=== PATIENT | female | born 1955 | race Caucasian/White ===

== ENCOUNTER → 2017-01-02 | Emergency (ER) | payer SELFPAY ==
[~2017-01-02] VITALS: Wt 68.0 kg
[~2017-01-02] MED LIST: ASPI-664 PO; ATOR20TA38 PO; CLOP75TA27 PO; METO-448 PO; NIT4 SL
[2017-01-02 15:21] VITALS: BP 135/61; PULSE 72; RESP 20; TEMP 98.7
== END | disposition left against medical advice (07) ==
LOC: FTE 13:51
DX: Z53.21 Procedure and treatment not carried out due to patient leaving prior to being seen by health care provider (principal)

== ENCOUNTER 2019-03-24 09:35 | Emergency (ER) | payer OTHER ==
[~2019-03-24] VITALS: Wt 80.0 kg
[~2019-03-24 09:35] MED LIST changes: -ASPI-664 PO; +ASPI-817 PO; -NIT4 SL; +NITR0.4T39 SL
[2019-03-24] MEDS ORDERED: ALBUTEROL 0.083% (NEB) 2.5 MG/3 ML AMP NEB STA (11:28)
[2019-03-24] MEDS ORDERED: IPRATROPIUM (NEB) 0.5 MG/2.5 ML AMP NEB STA (11:28)
--- NOTE | 2019-03-24 11:38 | ERD ---
ER Documentation Chief Complaint Chief Complaint FLU X 4 DAYS, NASAL CONGESTION, COUGH HPI Patient is a 63 years old female with past medical history of deviated septum and myocardial infarction status post stent placement 3 years ago presenting to the clinic for cold-like symptoms since Saturday. Patient reports of general body aches, cough, shortness of breath, chest pain with cough, throat pain, nasal congestion, headaches, bilateral ear pain. Patient reports she has difficult time breathing due to the severe congestion of her nose and admits to having 5 hours sleep. Patient was seen and evaluated by her primary care provider and was given Z-Glynn without resolution followed by amoxicillin without resolution. Patient is requesting strep testing. ROS All systems reviewed and are negative except as per history of present illness. Medications Home Meds Active Scripts Phenylephrine/Diphenhydramine (DIMETAPP COLD & CONGEST LIQUID) 118 Ml Liquid, 10 ML PO Q4H PRN for COUGH, #4 OZ Prov:MARI REZA PA-C 03/24/19 Mometasone Furoate* (Nasonex*) 50 Mcg/Mcewen - 17 Gm Mcewen.pump, 2 SPRAY NASAL BID, #1 BOTTLE TO EACH NOSTRIL Prov:MARI REZA PA-C 03/24/19 Loratadine* (Claritin*) 5 Mg Tab.rapdis, 5 MG PO DAILY, #30 TAB Prov:MARI REZA PA-C 03/24/19 Metoprolol Tartrate* (Lopressor*) 25 Mg Tab, 25 MG PO BID, #60 TAB Prov:CAMERON HENDRICKSON 07/28/15 Atorvastatin Calcium* (Atorvastatin Calcium*) 20 Mg Tab, 40 MG PO DAILY@21, #30 Prov:CAMERON HENDRICKSON 07/28/15 Aspirin* (Aspirin* EC) 81 Mg Tabec, 81 MG PO DAILY, #30 Prov:CAMERON HENDRICKSON 07/28/15 Reported Medications Nitroglycerin* (Nitrostat*) 0.4 Mg Tab.subl, 0.4 MG SL Q5MIN PRN for CHEST PAIN, BOTTLE 08/17/15 Clopidogrel Bisulfate (Clopidogrel) 75 Mg Tablet, 75 MG PO DAILY, TAB 08/17/15 Allergies Allergies: Coded Allergies: No Known Allergy (Unverified , 08/17/15) PMhx/Soc Deviated septum. Myocardial infarction status post stent placement in 2016. History of Surgery: Yes (CABG) Anesthesia Reaction: No Hx Neurological Disorder: Yes Hx Respiratory Disorders: Yes Hx Cardiac Disorders: No (STENT PLACEMENT) Hx Psychiatric Problems: Yes (DEPRESSION) Hx Miscellaneous Medical Probl: No Hx Alcohol Use: No Hx Substance Use: No Hx Tobacco Use: No Smoking Status: Never smoker FmHx Family History: No diabetes, No coronary disease, No other Physical Exam Vitals Vital Signs Date Temp Pulse Resp B/P (MAP) Pulse Ox O2 O2 Flow FiO2 Time Delivery Rate 03/24/19 99 18 99 21 11:49 03/24/19 99.2 99 18 164/94 99 09:40 (117) Physical Exam Const: No acute distress Head: Atraumatic. No sinus tenderness. Eyes: Normal Conjunctiva ENT: Cerumen impaction in right ear canal; Tympanic membrane could not be evaluated. Normal left ear exam. He is to mucosa edematous. Mild oropharyngeal erythema. Neck: Full range of motion. No meningismus. Resp: Diminished breath sounds bilaterally. No rales, no rhonchi, no whe ezing. Cardio: Regular rate and rhythm, no murmurs Ext: No cyanosis, or edema Neur: Awake and alert Psych: Normal Mood and Affect Results 24 hrs Laboratory Tests Test 03/24/19 12:52 Monoscreen Negative Current Medications Medications Dose Sig/Conchita Start Time Status Last (Trade) Ordered Route PRN Stop Time Admin Dose Reason Admin Albuterol 5 mg ONCE STAT 03/24/19 DC 03/24/19 (Proventil NEB 11: 11:44 0.083% (Neb)) 03/24/19 11:31 Ipratropium 1 mg ONCE STAT 03/24/19 DC 03/24/19 [place] NEB 11: 11:45 (Atrovent 03/24/19 11:31 0.02% (Neb)) 125 mg ONCE STAT 03/24/19 DC 03/24/19 Methylprednis IM 11: 11:59 olone Sodium 03/24/19 11:31 Succinate (Solu-Medrol) Procedures/MDM Patient was seen and evaluated for cold. Patient's chest x-ray is unremarkable while symptoms most resemble bronchitis. Patient has a negative strep and mono test. Right ear exam status post ear lavage shows normal signs of infection. No erythema, discharge, perforation noted on exam. Patient is stable and ready for discharge. Patient was informed that she is most likely having an allergy exacerbation which is worsened by her deviated septum. Patient will be discharged with Claritin, Nasonex, and Dimetapp. Departure Diagnosis: Primary Impression: Bronchitis Additional Impressions: Right ear impacted cerumen Allergy Encounter type: initial encounter Qualified Codes: T78.40XA - Allergy, unspecified, initial encounter Condition: Stable Patient Instructions: Preventing Latex Allergy Referrals: [facility] Additional Instructions: Patient advised to return to the ED immediately for new or worsening symptoms. Patient advised to follow up with primary care provider in the next 24-48 hours. Patient verbalized understanding and agrees with treatment plan and course of action. If patient has no primary care they may follow up with [facility] [address] [place] [id number] or [facility] [address] [place] [address] or [facility] [address] [place] [address] MARI REZA PA-C March 24, 2019 11:38
[2019-03-24] MEDS: METHYLPREDNISOLONE 125 MG INJ IM STA ×2 (11:39→11:59)
[2019-03-24] MEDS ORDERED: PHEN118L PO (13:43)
[2019-03-24] MEDS ORDERED: LORA5TAB4 PO (13:43)
[2019-03-24] MEDS ORDERED: NASO17 NASAL (13:43)
[2019-03-24 13:59] VITALS: BP 126/81; PULSE 85; RESP 19
== END 2019-03-24 14:00 | disposition home or self-care (01) ==
LOC: FTE 09:35
DX: J40 Bronchitis, not specified as acute or chronic (principal); I25.2 Old myocardial infarction; H61.21 Impacted cerumen, right ear; Z79.01 Long term (current) use of anticoagulants; Z79.82 Long term (current) use of aspirin; Z95.1 Presence of aortocoronary bypass graft
CPT/HCPCS: 71045; 86308; 87880; 94664; 96372; J2930; Z7502; Z7610

== ENCOUNTER 2019-04-02 21:05 | Emergency (ER) | payer OTHER ==
[~2019-04-02] VITALS: Ht 160 cm; Wt 67.4 kg
[~2019-04-02 21:05] MED LIST changes: +LORA5TAB4 PO; +NASO17 NASAL; +PHEN118L PO
[2019-04-02 21:33] VITALS: Ht 160 cm; Wt 67.4 kg
[2019-04-02] MEDS ORDERED: KETOROLAC 30 MG INJ IV STA (23:29)
[2019-04-02] MEDS ORDERED: SOD CHLORIDE 0.9% 1,000 ML IV STA (23:29)
[2019-04-03] MEDS ORDERED: IBUPROFEN 800 MG TAB PO ONE
--- NOTE | 2019-04-03 00:46 | ERD ---
ER Documentation Chief Complaint Chief Complaint Sinus pain HPI 63-year-old female who has had at least 3 weeks of sinus headache. She describes bilateral frontal and maxillary sinus pain and fullness with drainage of greenish discharge. No fevers or chills. The patient has had 2 visits to the emergency room for similar symptoms. She has tried oral antibiotics possibly amoxicillin or Augmentin. Patient is describing persistent pain that is 6-7 out of 10. No fevers or chills. The family was to follow-up with an ear nose and throat doctor tomorrow but there appointment was canceled and they do not have follow-up for several weeks. This prompted the visit to the emergency room. Of note is unclear why at triage it was noted to the patient is a fall. She denies falling or having head injury. This is not accurate information. ROS All systems reviewed and are negative except as per history of present illness. Medications Home Meds Active Scripts Ibuprofen* (Motrin*) 800 Mg Tab, 800 MG PO Q6H PRN for PAIN AND OR ELEVATED TEMP, #30 TAB Prov:ISIS DERAS MD 04/03/19 Fluticasone Propionate (Flonase Allergy Relief) 9.9 Ml [place].susp, 1 SPRAY NASAL BID for 10 Days, #1 BOTTLE TO EACH NOSTRIL Prov:ISIS DERAS MD 04/03/19 Clindamycin Hcl* (Clindamycin Hcl*) 300 Mg Capsule, 300 MG PO TID for 14 Days, CAP Prov:ISIS DERAS MD 04/03/19 Phenylephrine/Diphenhydramine (DIMETAPP COLD & CONGEST LIQUID) 118 Ml Liquid, 10 ML PO Q4H PRN for COUGH, #4 OZ Prov:MARI REZA PA-C 03/24/19 Mometasone Furoate* (Nasonex*) 50 Mcg/[place] - 17 Gm [place].pump, 2 SPRAY NASAL BID, #1 BOTTLE TO EACH NOSTRIL Prov:MARI REZA PA-C 03/24/19 Loratadine* (Claritin*) 5 Mg Tab.rapdis, 5 MG PO DAILY, #30 TAB Prov:MARI REZA PA-C 03/24/19 Metoprolol Tartrate* (Lopressor*) 25 Mg Tab, 25 MG PO BID, #60 TAB Prov:CAMERON HENDRICKSON 07/28/15 Atorvastatin Calcium* (Atorvastatin Calcium*) 20 Mg Tab, 40 MG PO DAILY@21, #30 Prov:CAMERON HENDRICKSON 07/28/15 Aspirin* (Aspirin* EC) 81 Mg Tabec, 81 MG PO DAILY, #30 Prov:CAMERON HENDRICKSON 07/28/15 Reported Medications Nitroglycerin* (Nitrostat*) 0.4 Mg Tab.subl, 0.4 MG SL Q5MIN PRN for CHEST PAIN, BOTTLE 08/17/15 Clopidogrel Bisulfate (Clopidogrel) 75 Mg Tablet, 75 MG PO DAILY, TAB 08/17/15 Allergies Allergies: Coded Allergies: No Known Allergy (Unverified , 08/17/15) PMhx/Soc History of Surgery: Yes (CABG) Anesthesia Reaction: No Hx Neurological Disorder: Yes Hx Respiratory Disorders: Yes Hx Cardiac Disorders: No (STENT PLACEMENT) Hx Psychiatric Problems: Yes (DEPRESSION) Hx Miscellaneous Medical Probl: No Hx Alcohol Use: No Hx Substance Use: No Hx Tobacco Use: No FmHx Family History: No diabetes Physical Exam Vitals Vital Signs Date Temp Pulse Resp B/P (MAP) Pulse Ox O2 O2 Flow FiO2 Time Delivery Rate 04/03/19 90 18 148/69 98 Room Air 00:07 (95) 04/02/19 98.9 74 18 156/67 97 21:33 (96) Physical Exam General: Well developed, well nourished, no acute distress Head: Normocephalic, atraumatic. Eyes: EOM intact ENT: Moist mucous membranes Neck: Full ROM Respiratory: No respiratory distress Cardiovascular: Well perfused distally Abdominal: Nondistended : Deferred MSK: No edema, no unilateral swelling, 5/5 strength Neurologic: Alert and oriented, moving all extremities, normal speech, steady gait Skin: No rash Psych: Normal mood Results 24 hrs Current Medications Medications Dose Sig/Conchita Start Time Status Last (Trade) Ordered Route PRN Stop Time Admin Dose Reason Admin Sodium 1,000 ml @ Q1H STAT 04/02/19 DC 04/03/19 Chloride 1,000 mls/hr IV 23:29 04/03/19 00:01 00:28 Ketorolac 30 mg ONCE STAT 04/02/19 DC Tromethamine IV 23:29 04/02/19 (Toradol) 23:33 Ibuprofen 800 mg ONCE ONCE 04/03/19 DC 04/03/19 (Motrin) PO 00:00 04/03/19 00:01 00:01 Procedures/MDM EKG, MONITORS, & DIAGNOSTIC IMAGING: CT sinus IMPRESSION: Extensive left-sided sinus disease. The left maxillary sinus is completely opacified, with obscuration of the left ostiomeatal unit. There is also extensive opacification of the superior and middle left nasal meati, the anterior left ethmoid air cells, and the left frontoethmoidal recess. Sinusitis cannot be excluded in these regions. MEDICAL DECISION MAKING: The patient is very frustrated about having her ENT appointment canceled tomorrow. They are demanding to see a nuclear power reactor operator in the emergency room setting. I expanded this is not possible for chronic or acute on chronic sinusitis. The patient is extremely well-appearing without signs or symptoms concerning for central nervous system process or invasive process. I explained to them that this is mostly symptom control, oral antibiotics and outpatient ear nose and throat follow-up. The patient would benefit from nasal steroids, clindamycin and outpatient follow-up. I discussed possibly obtaining CT of the sinus to facilitate their follow-up. They are agreeable. Patient is refusing IV Toradol. She would like oral Motrin. ER COURSE: * CT as shown above. The patient will benefit from clindamycin, Flonase, Motrin, outpatient ENT follow-up. Decongestants recommended. * Patient well-appearing and ambulatory. CONSULTATION: None DISPOSITION PLAN: The patient does not have an identifiable emergent medical condition that warrants inpatient hospitalization at this time. The patient is deemed safe for discharge with outpatient follow-up. We discussed follow up with the patient's primary care doctor within 24 to 48 hours as needed. We also discussed return to the emergency room for worsening symptoms or worsening condition. Outpatient referral: ENT Discharge Medications: Clindamycin, Flonase, Motrin Departure Diagnosis: Primary Impression: Sinusitis Sinusitis location: maxillary Chronicity: acute Recurrence: non- recurrent Qualified Codes: J01.00 - Acute maxillary sinusitis, unspecified Condition: Stable ISIS DERAS MD Apr 03, 2019 00:46
[2019-04-03] MEDS ORDERED: IBUP800T48 PO (01:35)
[2019-04-03] MEDS ORDERED: FLUT9.9S NASAL (01:35)
[2019-04-03] MEDS ORDERED: CLIN300C10 PO (01:35)
[2019-04-03 02:00] VITALS: BP 135/77; PULSE 84; RESP 16
== END 2019-04-03 02:30 | disposition home or self-care (01) ==
LOC: E/R 21:05
DX: J01.00 Acute maxillary sinusitis, unspecified (principal); Z79.01 Long term (current) use of anticoagulants; Z79.82 Long term (current) use of aspirin; Z95.1 Presence of aortocoronary bypass graft; Z98.61 Coronary angioplasty status
CPT/HCPCS: 70486; J7030; Z7502; Z7610